=== PATIENT | female | born 1945 | race Caucasian/White ===

== ENCOUNTER → 2017-09-04 | Outpatient (CLI) | payer OTHER ==
[~2017-09-04] MED LIST: ATOR10TA82 PO; ESCI1TAB18 PO; PANT40TA PO; POTA20TA13 PO; [UNRECOGNIZED DRUG - CODE]
--- NOTE | 2017-09-04 12:45 | DIAGNOSTIC IMAGING REPORT ---
PET/CT HISTORY: PANCREATIC CANCER TECHNIQUE: PET/CT was performed from the base of the skull through the pelvis following the intravenous administration of 12.5 mCi of F18-FDG. Non-contrast CT imaging was performed over the same range without breath-hold for attenuation correction of PET images and anatomic correlation, but not for primary interpretation as it is not of standard diagnostic quality. CT DOSE: COMPARISON: None. FINDINGS: HEAD AND NECK: There is no FDG-avid disease or significant lymphadenopathy in the imaged portions of the head and the neck. CHEST: A 4 mm subpleural nodule along the left major fissure on image 87. This does not demonstrate abnormal FDG uptake but is likely below the threshold for PET imaging. This is unlikely to represent metastatic disease given its location. Punctate calcified granuloma within the right lung apex. No pleural effusions. No mediastinal or hilar lymphadenopathy. Abnormal skin thickening and mild FDG uptake seen within the inferior aspect of the left breast. This demonstrates an SUV max of 3.2. ABDOMEN/PELVIS: Gallbladder is surgically absent. There is moderate intrahepatic bile duct dilatation. The pancreatic head appears to have been resected consistent with prior Whipple procedure. No abnormal FDG uptake within the residual pancreatic tail. There is an irregular retroperitoneal soft tissue nodule anterior to the abdominal aorta on image 140. This measures 2.0 x 1.7 cm and demonstrates abnormal FDG uptake with an SUV max of 4.9. Therefore, this is highly suspicious for metastatic disease. No FDG avid hepatic or splenic masses. Mild FDG uptake associated with the nodular thickening of the left adrenal gland. This demonstrates an SUV max of 3. Large midline ventral hernia containing multiple loops of large and small bowel. Hysterectomy. Faint groundglass subcentimeter nodular densities within the anterior omentum located within the hernia sac. This is best seen on images 175-178. These do not demonstrate abnormal FDG uptake. However, this could be due to their small size of no greater than 6 mm. MUSCULOSKELETAL: There is no FDG-avid or destructive bone lesion. IMPRESSION: 1. A 2.0 x 1.7 cm irregular FDG avid soft tissue nodule within the retroperitoneum. This is highly suspicious for metastatic disease. 2. Abnormal skin thickening and mild FDG uptake within the inferior left breast. Physical exam as well as follow-up at a dedicated breast care center is recommended for further evaluation. 3. Mild FDG uptake within the nodular thickening of the left adrenal gland which may be physiologic. This is unlikely to represent metastatic disease at this time. 4. Small focus of groundglass nodular densities within the anterior omentum as described above. These do not demonstrate abnormal FDG uptake but are likely below the threshold for PET imaging. This bears watching on future examinations to exclude the possibility of a small metastatic deposit. Electronically signed by: Grant Coleman M.D. 09/04/2017 12:43 PM Dictated Date/Time: 09/04/2017 12:19 PM
== END | disposition home or self-care (01) ==
LOC: C.PET 08:36
PROVIDERS: ATTEND Internal Medicine Hematology & Oncology
DX: C25.0 Malignant neoplasm of head of pancreas (principal)

== ENCOUNTER → 2017-11-18 | Outpatient (CLI) | payer OTHER ==
[~2017-11-18] MED LIST changes: +ONDA-170 PO; -POTA20TA13 PO; -[UNRECOGNIZED DRUG - CODE]
[2017-11-18 10:53] LABS: BASO % 0.4 %; BASO ABS # 0.03 K/uL (0-0.2); EOS % 6.6 %; EOS ABS # 0.49 K/uL (0-0.5); HEMATOCRIT 39.7 % (37-47); HEMOGLOBIN 12.9 g/dL (12.0-16.0); IG# 0.01 K/uL (0.00-0.02); LYMPH % 11.7 %; LYMPH ABS # 0.87 K/uL (1.2-3.4); MEAN CELL VOLUME 100.3 fL (80-100); MEAN CORPUSCULAR HEMOGLOBIN 32.6 pg (25-34); MEAN CORPUSCULAR HGB CONC 32.5 g/dl (32-36); MEAN PLATELET VOLUME 10.8 fL (7.4-10.4); MONO % 9.9 %; MONO ABS # 0.74 K/uL (0.11-0.59); NEUT % 71.3 %; NEUT ABS # 5.31 K/uL (1.4-6.5); PLATELET COUNT 215 K/uL (130-400); RED CELL DISTRIBUTION WIDTH CV 16.8 % (11.5-14.5); RED CELL DISTRIBUTION WIDTH SD 61.3 fL (36.4-46.3); WHITE BLOOD COUNT 7.45 K/uL (4.8-10.8)
[2017-11-18 11:24] LABS: ALBUMIN 2.8 gm/dl (3.4-5.0); ALT/SGPT 114 U/L (12-78); AST/SGOT 122 U/L (15-37); BLOOD UREA NITROGEN 12 mg/dl (7-18); CALCIUM 8.8 mg/dl (8.5-10.1); CARBON DIOXIDE 26 mmol/L (21-32); CREATININE 0.78 mg/dl (0.60-1.20); GLUCOSE 175 mg/dl (70-99); SODIUM 138 mmol/L (136-145)
[2017-11-18 11:29] LABS: ALKALINE PHOSPHATASE 418 U/L (45-117); TOTAL PROTEIN 7.1 gm/dl (6.4-8.2)
== END | disposition home or self-care (01) ==
LOC: C.LABSPEC 10:41
PROVIDERS: ATTEND Internal Medicine Hematology & Oncology
DX: C25.0 Malignant neoplasm of head of pancreas (principal)

== ENCOUNTER → 2017-11-27 | Outpatient (CLI) | payer OTHER ==
[2017-11-27 14:08] VITALS: BP 98/64; PULSE 72; TEMP 36.6; O2SAT 97
--- NOTE | 2017-11-27 15:16 | Radiation Oncology Follow-Up ---
Radiation Oncology Follow-Up Date of Visit Nov 27, 2017. 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 She received 3,000 cGy. Last Edited By: Chery Mason on Nov 04, 2017 15:16 History of Present Illness Ms. Carroll presented with obstructive jaundice in the summer of 2015. She did undergo ERCP and stent placement which was therapeutic but not diagnostic. She initially had endoscopic evaluation with multiple brushings which were nondiagnostic. 10/17/2015 --- endoscopic ultrasound biopsy of pancreatic head by Dr. Sen --- biopsy of pancreatic head, highly suspicious for mucinous adenocarcinoma. 12/20/2015 --- Whipple procedure by Dr. Jett Hawk --- pancreatic adenocarcinoma, moderately differentiated, greatest dimension 2.3 cm. Tumor invades peripancreatic soft tissues. Margins uninvolved by invasive carcinoma with closest margin being 2 mm. Indeterminate lymphovascular space invasion. Perineural invasion present. 21 lymph nodes examined and 0 positive for metastatic carcinoma. pT3N0. Multiple liver biopsies negative for metastatic carcinoma. 01/2016 to 07/2016 --- adjuvant gemcitabine and Xeloda chemotherapy underneath the supervision of Dr. Carpio. Complications included hand-foot syndrome. 05/21/2017 --- CT of chest/abdomen/pelvis --- interval increased size of focal retroperitoneal spiculated soft tissue density, posterior to the SMA concerning for metastasis. Fat necrosis as a possible differential. Small pulmonary nodules, most of which are stable. Tiny nodules in the lower lobes are new from prior exam and may be infectious or inflammatory. Attention on follow-up is recommended. Moderate intra-and extrahepatic biliary dilatation with prominent remnant cystic duct. Findings are likely postsurgical cholecystectomy with no obstructing lesion identified. Anterior abdominal wall hernia containing a small large bowel and mesentery with 13 cm defect. 06/03/2017 --- retroperitoneal mass, endoscopic needle aspiration --- blood and bacteria only, material obtained are insufficient for diagnosis. 08/23/2017 --- CT of chest/abdomen/pelvis --- progressive now moderate intrahepatic biliary dilatation with extrinsic narrowing of the distal CBD by a central peribiliary cyst versus dilated cystic duct remnant as well as adjacent focal kink of main portal vein are suggestive of adhesions versus fibrosis and possible anastomotic stricture. Stable soft tissue deposit between aorta and SMA where there is encasement highly suspicious for metastatic disease. No evidence of progressive disease. Large [place] ventral abdominal wall hernia containing small and large bowel loops without obstruction. 09/04/2017 --- PET/CT scan --- IMPRESSION:1. A 2.0 x 1.7 cm irregular FDG avid soft tissue nodule within the retroperitoneum. This is highly suspicious for metastatic disease. 2. Abnormal skin thickening and mild FDG uptake within the inferior left breast. Physical exam as well as follow-up at a dedicated breast care center is recommended for further evaluation. 3. Mild FDG uptake within the nodular thickening of the left adrenal gland which may be physiologic. This is unlikely to represent metastatic disease at this time. 4. Small focus of groundglass nodular densities within the anterior omentum as described above. These do not demonstrate abnormal FDG uptake but are likely below the threshold for PET imaging. This bears watching on future examinations to exclude the possibility of a small metastatic deposit. We have been asked to evaluate Ms. Carroll for consideration of radiation therapy for her local recurrence with or without chemotherapy by Dr. Carpio. Currently the patient is asymptomatic and has no complaints. 10/25/2017---Status post completion of SBRT. She received 3,000 cGy. Interim History Over the past month she has continued on her systemic chemotherapy. She does note increased fatigue. She has difficulty completing tasks she previously had performed without difficulty. She has had some issues with constipation. She has had a 7 pound weight loss. She denies abdominal pain. She has had some episodes of nausea. She denies vomiting. She has noted intolerance to greasy type foods. She did start a supplement. She is using core power protein. She states that this has a good flavor. She is concerned about a darker color to her urine. She does try to drink plenty of fluids. With the intolerance to greasy foods I reviewed whether or not she had taken pancreatic enzymes. She stated that she believes she took these right after her surgery but they were not continued. She remembers them being a large pill and she did have difficulty with swallowing the pills. Allergies Coded Allergies: Penicillins (Verified Allergy, Intermediate, swelling and edema; skin test positive, 10/09/17) Home Medications Scheduled Atorvastatin (Lipitor), 10 MG PO HS Escitalopram Oxalate (Lexapro), 20 MG PO HS Pantoprazole (Protonix), 40 MG PO HS Scheduled PRN Ondansetron Hcl (Zofran), 8 MG PO QID PRN for Nausea Review of Systems Gastrointestinal: Symptoms: Nausea, Constipation GI Comments: Waves of nausea;has antiemetics to use;Constipation - manageable Oral: Symptoms: No Problems Respiratory: Symptoms: WNL Urinary: Comments: Concerned that her urine is very orange despite pushing PO fluids; Skin: Symptoms: No Problems Physical Exam Vital Signs Date Time Temp Pulse Resp B/P (MAP) Pulse Ox O2 Delivery O2 Flow Rate FiO2 11/27/17 14:08 36.6 72 16 98/64 97 Fatigue: None General Appearance: no apparent distress Eyes: normal inspection, EOMI ENT: normal ENT inspection, hearing grossly normal Neck: no adenopathy, thyroid normal Respiratory/Chest: lungs clear, no respiratory distress, no accessory muscle use Cardiovascular: regular rate, rhythm, no gallop, no murmur Abdomen: non tender, soft, no organomegaly, + pertinent finding (Large ventral hernia) Extremities: no pedal edema Neurologic/Psychiatric: no motor/sensory deficits, alert, normal mood/affect Skin: warm/dry Pain Management Patient Reports Pain: No Initial Pain Intensity: 0.0 Pain Management Plan She denies pain therefore requires no pain management. Laboratory Laboratory Results: were reviewed Pathology Pathology Results: were reviewed, and pertinent findings noted in HPI Imaging Imaging Studies: not applicable Assessment & Plan Plan: The patient was seen and examined by Dr. Ramires. She will continue regular follow-up with medical oncology, her primary care provider, and it systems engineer. She will be having a recheck visit and scanning in [place] in December. I have asked her to review the use of pancreatic enzymes with oncology. This may help to prevent the episodes of nausea after eating. She will continue her supplement. She will continue to increase fluids. She had some issues with constipation and we discussed Metamucil as well as Senokot S. We asked her to return to our office in 3 months. She may call if she has any questions or concerns in the interim. Assessment & Plan (Attending) I agree with note created by Chery Mason PA-C. I reviewed the patient's chart and information with her. I have examined and evaluated the patient. I reviewed relevant clinical information and answered the patient's and/or family' s questions. BIOLOGY SPECIMEN TECHNICIAN Total Time In Follow-Up I spent 20 minutes speaking to the patient in performing examination. I spent 15 minutes reviewing information and completing this note. AK Total Time (Attending) In Follow-Up I spent 15 minutes examining and counseling the patient. BIOLOGY SPECIMEN TECHNICIAN Copy To Angy Burrows; Jett Hawk M.D.; Guanakito Briggs MD Problem Qualifiers (1) Pancreatic cancer: Pancreatic malignancy location: head of pancreas Qualified Codes: C25.0 - Malignant neoplasm of head of pancreas
== END | disposition home or self-care (01) ==
LOC: C.ONC 13:55
PROVIDERS: ATTEND Physician Assistant Medical
DX: Z08 Encounter for follow-up examination after completed treatment for malignant neoplasm (principal); Z92.3 Personal history of irradiation; Z85.07 Personal history of malignant neoplasm of pancreas

== ENCOUNTER → 2017-12-02 | Outpatient (CLI) | payer OTHER ==
[2017-12-02 11:02] LABS: BASO % 0.2 %; BASO ABS # 0.01 K/uL (0-0.2); HEMATOCRIT 37.2 % (37-47); HEMOGLOBIN 12.3 g/dL (12.0-16.0); IG# 0.03 K/uL (0.00-0.02); LYMPH ABS # 0.58 K/uL (1.2-3.4); MEAN CELL VOLUME 101.1 fL (80-100); MEAN CORPUSCULAR HEMOGLOBIN 33.4 pg (25-34); MEAN CORPUSCULAR HGB CONC 33.1 g/dl (32-36); MEAN PLATELET VOLUME 10.7 fL (7.4-10.4); MONO % 18.8 %; MONO ABS # 1.09 K/uL (0.11-0.59); NEUT % 70.5 %; NEUT ABS # 4.08 K/uL (1.4-6.5); PLATELET COUNT 105 K/uL (130-400); RED CELL DISTRIBUTION WIDTH CV 16.6 % (11.5-14.5); RED CELL DISTRIBUTION WIDTH SD 59.2 fL (36.4-46.3); WHITE BLOOD COUNT 5.79 K/uL (4.8-10.8)
[2017-12-02 11:19] LABS: ALBUMIN 2.7 gm/dl (3.4-5.0); ALKALINE PHOSPHATASE 545 U/L (45-117); ALT/SGPT 204 U/L (12-78); AST/SGOT 167 U/L (15-37); BLOOD UREA NITROGEN 12 mg/dl (7-18); CALCIUM 8.6 mg/dl (8.5-10.1); CARBON DIOXIDE 26 mmol/L (21-32); CREATININE 0.64 mg/dl (0.60-1.20); GLUCOSE 131 mg/dl (70-99); POTASSIUM 3.7 mmol/L (3.5-5.1); SODIUM 134 mmol/L (136-145); TOTAL PROTEIN 7.2 gm/dl (6.4-8.2)
== END | disposition home or self-care (01) ==
LOC: C.LABSPEC 10:36
PROVIDERS: ATTEND Internal Medicine Hematology & Oncology
DX: C25.0 Malignant neoplasm of head of pancreas (principal)

== ENCOUNTER → 2017-12-20 | Outpatient (CLI) | payer OTHER ==
--- NOTE | 2017-12-20 15:59 | DIAGNOSTIC IMAGING REPORT ---
BILIARY ULTRASOUND CLINICAL HISTORY: Right upper quadrant abdominal pain COMPARISON STUDY: PET/CT scan dated 09/04/2017 FINDINGS: No hepatic masses are visualized. There is intra hepatic biliary ductal dilatation. The gallbladder surgically absent. By history the patient is status post a prior Whipple's procedure. There is a 39 x 37 x 31 mm nodule in the bernice hepatis/peripancreatic region. This unclear whether this represents a pathologic lymph node, or whether this represents the patient's choledochoduodenostomy. Further evaluation with CT scanning might be considered. There is no right-sided hydronephrosis. IMPRESSION: 1. Postsurgical changes of a prior Whipple's procedure and cholecystectomy. 2. Moderate intrahepatic biliary ductal dilatation 3. 39 x 37 x 31 mm lesion in the bernice hepatis/peripancreatic region. Is unclear whether this represents a pathologic lymph node or the patient's choledochojejunostomy. Further value with CT scanning might be considered. Electronically signed by: Armando Schultz M.D. 12/20/2017 3:57 PM Dictated Date/Time: 12/20/2017 3:46 PM
== END | disposition home or self-care (01) ==
LOC: C.ULTRBC 14:44
PROVIDERS: ATTEND Internal Medicine Hematology & Oncology
DX: C25.0 Malignant neoplasm of head of pancreas (principal); R93.2 Abnormal findings on diagnostic imaging of liver and biliary tract

== ENCOUNTER 2017-12-23 15:43 | Emergency (ER) | payer OTHER ==
[~2017-12-23] VITALS: Ht 167.6 cm; Wt 89.2 kg
[2017-12-23 15:44] VITALS: TEMP 37; Ht 167.6 cm; Wt 89.2 kg
[2017-12-23] MEDS ORDERED: DiphenhydrAMINE HCL 50 MG/ML VIAL IV STA (16:04)
[2017-12-23] MEDS ORDERED: ALBUTEROL 0.083% NEBU SOLN 3 ML VIAL INH STA (16:04)
[2017-12-23 16:18] VITALS: O2SAT 98
--- NOTE | 2017-12-23 16:56 | EMERGENCY ROOM VISIT NOTE ---
ED Visit Note First contact with patient: 15:49 CHIEF COMPLAINT: Allergic reaction to CT contrast HISTORY OF PRESENT ILLNESS: This 72-year-old female patient presents to the emergency department, ambulatory, after they developed sudden onset of hives and itchiness on her chest, abdomen, neck, and back. The patient was having a CT scan performed 30-45 minutes ago due to increased bilirubin. She states the CT was with IV and oral contrast. She does report history of IV contrast scans without problems in the past, however this is the first time she has had oral contrast. The patient denies any pain or dyspnea. She denies wheezing. The patient does not have swelling of the face and lips or a sensation of swelling in the throat. The patient has not had shortness of breath. The patient has tried no medications. She was sent straight to the emergency department from CT scan. The patient denies any headache, chest pain, dizziness, visual disturbances, abdominal pain, nausea, vomiting, or other concerning symptoms. REVIEW OF SYSTEMS: A 10 system review of systems was performed with positives and pertinent negatives listed in the history of present illness. All other systems were reviewed and are negative. ALLERGIES: Penicillin, CT contrast MEDICATIONS: Atorvastatin, Lexapro, Zofran, Protonix PMH: Breast cancer, hyperbilirubinemia SOCIAL HISTORY: The patient lives locally with family. She denies drug, alcohol , tobacco use. PHYSICAL EXAM:VITALS: Vitals are noted on the nurse's note and reviewed by myself. Vital signs stable. GENERAL: This is a 72-year-old white female, in no acute distress, nondiaphoretic, well-developed well-nourished. THROAT: No pharyngeal edema or injection, no exudates or tonsillar hypertrophy. Airway patent. LUNGS: Clear to auscultation and breath sounds equal, no wheezes, rales, or rhonchi. EYES: PERRLA, EOMI, no discharge or injection. NEUROLOGICAL: Alert and oriented to person, place, and time. Normal sensation to light and sharp touch. HEART: Regular rate without murmurs, ectopy, gallops, or rubs. SKIN: Urticaria noted on the abdomen, chest, back, and anterior neck. No significant swelling. The lips are not swollen. There is no periorbital swelling. EMERGENCY DEPARTMENT COURSE: I examined the patient. The patient was given diphenhydramine and an albuterol nebulizer. [place] much improved and was discharged in stable condition with the instructions noted below. I attest that I have personally reviewed the patient's current medication list. Patient was found to have normal blood pressure on screening and does not require follow-up. DIFFERENTIAL DIAGNOSIS: Allergic reaction, anaphylaxis, dermatitis, fungal reaction, asthma, COPD, pneumonia, bronchitis, malignancy, and others DIAGNOSIS: Allergic reaction to contrast dye, Urticaria The chart was completed utilizing Backchat voice recognition software. Grammatical errors, random word insertions, pronoun errors, and incomplete sentences are an occasional consequence of this system due to software limitations, ambient noise, and hardware issues. Any formal questions or concerns about the content, text, or information contained within the body of this dictation should be directly addressed to the provider for clarification. Current/Historical Medications Scheduled Atorvastatin (Lipitor), 10 MG PO HS Escitalopram Oxalate (Lexapro), 20 MG PO HS Pantoprazole (Protonix), 40 MG PO HS Scheduled PRN Ondansetron Hcl (Zofran), 8 MG PO QID PRN for Nausea Allergies Coded Allergies: Penicillins (Verified Allergy, Intermediate, swelling and edema; skin test positive, 12/23/17) Uncoded Allergies: CONTRASTMEDIA (Allergy, Intermediate, HIVES, ITCHY, 12/23/17) PT DEVELOPED HIVES AND ITCHINESS AFTER THE INJECTION OF OPTIRAY 320 Vital Signs Date Time Temp Pulse Resp B/P (MAP) Pulse Ox O2 Delivery O2 Flow Rate FiO2 12/23/17 17:39 64 18 124/75 98 Room Air 12/23/17 17:00 54 12/23/17 16:18 98 Room Air 12/23/17 15:47 97 Room Air 12/23/17 15:44 37.0 71 17 149/78 98 Room Air Medications Administered Medications (Trade) Dose Ordered Sig/Sweta Route Start Time Stop Time Status Last Admin Dose Admin Albuterol Sulfate (Ventolin 0.083% 2.5MG/3ML Neb) 2.5 mg NOW STAT INH 12/23/17 16:04 12/23/17 16:06 DC 12/23/17 16:18 2.5 MG Diphenhydramine HCl (Benadryl Inj) 50 mg NOW STAT IV 12/23/17 16:04 12/23/17 16:06 DC 12/23/17 16:18 50 MG Departure Information Impression Primary Impression: Urticaria Additional Impression: Allergic reaction Dispostion Home / Self-Care Condition GOOD Referrals No Doctor, Assigned (PCP) Patient Instructions ED Drug React Allergic, My [facility] Additional Instructions You have been treated in the Emergency Department for an Allergic Reaction. You have been treated and monitored in the Emergency Department appropriately. You should take Benadryl (diphenhydramine) 25-50 mg orally every 4-6 hours for the next 5-7 days. This medication is [id number] and you will NOT need a prescription to purchase this at your local pharmacy. You should continue taking the Benadryl for the COMPLETION of the 5-7 days. This is to prevent a rebound allergic reaction in the event that allergens are still present in your system. As with every Emergency Department visit, you should follow-up with your primary care provider in 2-3 days for reevaluation. Return to the Emergency Department if your current symptoms worsen despite treatment course outlined above, or if you develop any of the following symptoms : wheezing, tongue or face swelling, tightness in your throat, shortness of breath, or fainting. Problem Qualifiers Additional Impression: Allergic reaction Encounter type: initial encounter Qualified Codes: T78.40XA - Allergy, unspecified, initial encounter
--- NOTE | 2017-12-23 17:38 | EMERGENCY ROOM VISIT NOTE ---
ED Visit Note First contact with patient: 15:49 Staff note: I have reviewed the Patients chart. I generally agree with the ED note and findings.
[2017-12-23 18:06] VITALS: BP 124/75; PULSE 64; O2SAT 98
== END 2017-12-23 18:08 | disposition home or self-care (01) ==
LOC: C.EDB 15:43 → C.EDA 18:08
DX: T50.8X5A Adverse effect of diagnostic agents, initial encounter (principal); E80.6 Other disorders of bilirubin metabolism; Z79.899 Other long term (current) drug therapy; Z88.0 Allergy status to penicillin